=== PATIENT | female | born 1950 | race Caucasian/White ===

== ENCOUNTER → 2020-06-12 15:59 | Outpatient (CLI) | payer OTHER, SELFPAY ==
--- NOTE | ~2020-06-12 | XR_ITS ---
EXAMINATION: XR knee LT 2V DATE: 06/12/2020 16:20 INDICATION: Left knee pain. TECHNIQUE: 2 views of left knee were obtained. COMPARISON: None. FINDINGS: Bone alignment is normal. No fracture. There is moderate osteoarthritis of medial compartme nt and mild osteoarthritis of lateral and patellofemoral compartments. There is chondrocalcinosis of the menisci. No knee joint effusion. IMPRESSION: 1. Moderate left knee osteoarthritis. Reviewed, dictated and finalized at location A.
--- NOTE | ~2020-06-12 | XR_ITS ---
EXAMINATION: XR knee RT 2V DATE: 06/12/2020 16:20 INDICATION: Right knee pain. TECHNIQUE: 2 views of right knee were obtained. COMPARISON: Right knee radiographs 04/26/2019 FINDINGS: There is varus angulation at the knee. No fracture. There is severe osteoarthritis of media l compartment and mild osteoarthritis of lateral and patellofemoral compartments. There is chondrocal cinosis of the menisci. No knee joint effusion. IMPRESSION: 1. Severe right knee osteoarthritis. Reviewed, dictated and finalized at location A.
--- NOTE | ~2020-06-12 | XR_ITS ---
XR lumbar spine 2-3V 06/12/2020 16:20 Indication: Lumbar radiculopathy Procedure: 3 views lumbar spine Comparison: 03/18/2014 Findings: There is disc narrowing and endplate hypertrophy at all lumbar levels. There is dextroscoli osis centered at L2. No acute fracture or traumatic malalignment. There are cholecystectomy clips. Th ere is a left hip arthroplasty. No evidence for spondylolisthesis. Impression: 1: Severe lumbar spondylosis with dextroscoliosis. Reviewed, dictated and finalized at location B. Impression: 1: Severe lumbar spondylosis with dextroscoliosis.
== END ==
PROVIDERS: PCP Family Medicine; Visit Provider Pain Medicine Interventional Pain Medicine
DX: F33.1 Major depressive disorder, recurrent, moderate (principal); G89.4 Chronic pain syndrome; M16.9 Osteoarthritis of hip, unspecified; M47.817 Spondylosis without myelopathy or radiculopathy, lumbosacral region; Z79.891 Long term (current) use of opiate analgesic; M47.26 Other spondylosis with radiculopathy, lumbar region; M17.0 Bilateral primary osteoarthritis of knee
CPT/HCPCS: 72100; 73560

== ENCOUNTER → 2021-05-07 10:48 | Outpatient (CLI) | payer OTHER, SELFPAY ==
--- NOTE | ~2021-05-07 | XR_ITS ---
EXAMINATION: XR knee LT 2V DATE: 05/07/2021 11:12 INDICATION: Left knee osteoarthritis. TECHNIQUE: 2 views of left knee standing were obtained. COMPARISON: Left knee radiographs 06/12/2020 FINDINGS: Bone alignment is normal. No fracture. There is moderate osteoarthrosis of medial compartme nt and mild osteoarthritis of lateral and patellofemoral compartments. There is chondrocalcinosis of the menisci. No knee joint effusion. IMPRESSION: 1. Moderate left knee osteoarthritis. Reviewed, dictated and finalized at location A.
--- NOTE | ~2021-05-07 | XR_ITS ---
EXAMINATION: XR knee RT 2V DATE: 05/07/2021 11:12 INDICATION: Right knee osteoarthritis. TECHNIQUE: 2 views of right knee standing were obtained. COMPARISON: Right knee radiographs 06/12/2020 FINDINGS: Bone alignment is normal. No fracture. There is severe osteoarthritis of medial compartment and mild osteoarthritis of lateral and patellofemoral compartments. There is chondrocalcinosis of th e menisci. No knee joint effusion. IMPRESSION: 1. Severe right knee osteoarthritis. Reviewed, dictated and finalized at location A.
--- NOTE | ~2021-05-07 | XR_ITS ---
XR lumbar spine 2-3V 05/07/2021 11:12 Indication: Radiculopathy Procedure: 3 views lumbar spine Comparison: Comparison to multiple prior studies sequentially, with oldest reviewed study dated 04/07. Findings: There is mild dextrocurvature of the lumbar spine centered at L2-3. There is disc narrowing at all lumbar levels with vacuum phenomena at multiple levels. Prominent marginal osteophytes. No ac manpreet fracture or traumatic malalignment. There is hypertrophy of the spinous processes at multiple lev els. There are cholecystectomy clips. Impression: 1: Severe lumbar spondylosis with mild dextrocurvature of the lumbar spine. Reviewed, dictated and finalized at location B. Impression: 1: Severe lumbar spondylosis with mild dextrocurvature of the lumbar spine.
== END ==
PROVIDERS: PCP Family Medicine; Visit Provider Pain Medicine Interventional Pain Medicine
DX: M17.0 Bilateral primary osteoarthritis of knee (principal); M54.5 Low back pain; M47.816 Spondylosis without myelopathy or radiculopathy, lumbar region; M41.86 Other forms of scoliosis, lumbar region
CPT/HCPCS: 72100; 73560

== ENCOUNTER → 2021-08-28 09:27 | Outpatient (CLI) | payer OTHER, SELFPAY ==
--- NOTE | ~2021-08-28 | XR_ITS ---
XR hip BI wo pelvis 08/28/2021 09:49 Indication: Hip pain Procedure: 2 views each hip Comparison: Comparison to multiple prior studies sequentially, with oldest reviewed study dated 04/17. Findings: There is mild osteoarthritis of the right hip with marginal osteophytosis. There is a left total hip arthroplasty. No acute fracture, subluxation or dislocation. Sacral foramen are symmetric. Pelvic structures are unremarkable. Impression: 1: No acute bone or joint abnormality. Reviewed, dictated and finalized at location A. Impression: 1: No acute bone or joint abnormality.
== END ==
PROVIDERS: PCP Family Medicine; Visit Provider Pain Medicine Interventional Pain Medicine
DX: M16.9 Osteoarthritis of hip, unspecified (principal)
CPT/HCPCS: 73521